=== PATIENT | female | born 1990 ===

== ENCOUNTER 2020-01-21 16:55 | Inpatient (IN) | payer OTHER ==
[2020-01-21] MEDS ORDERED: Butorphanol 1 MG/ML SDV IVPUSH PRN (18:28)
[2020-01-21] MEDS ORDERED: Carboprost Tromethamine 250 MCG/1 ML Amp IM PRN (18:28)
[2020-01-21] MEDS ORDERED: Sodium Chloride 0.9% 2.5 ML Syringe FLUSH PRN (18:28)
[2020-01-21] MEDS ORDERED: Lidocaine 1% 50 ML MDV INJECT PRN (18:28)
[2020-01-21] MEDS ORDERED: Tranexamic Acid 1,000 MG in Sodium Chloride 0.9% 100 ML IV PRN (18:28)
[2020-01-21] MEDS ORDERED: Water For Irrigation,Sterile 1,000 ML Container IRR PRN (18:28)
[2020-01-21] MEDS ORDERED: Nalbuphine 10 MG/1 ML Vial IVPUSH PRN (18:28)
[2020-01-21] MEDS ORDERED: Methylergonovine 0.2 MG/1 ML Amp IM PRN (18:28)
[2020-01-21] MEDS ORDERED: Sodium Chloride 0.9% 10 ML SDV IV PRN (18:28)
[2020-01-21] MEDS ORDERED: Misoprostol 200 MCG Tab PO PRN (18:28)
[2020-01-21] MEDS ORDERED: Sodium Chloride 0.9% 10 ML Syringe FLUSH PRN (18:28)
[2020-01-21] MEDS ORDERED: Oxytocin/0.9 % Sodium Chloride 30 UNIT/500 ML BAG IV SCH (18:30)
[2020-01-21] MEDS ORDERED: fentaNYL 100 MCG/2 ML SDV ONE (19:57)
[2020-01-21] MEDS ORDERED: Ropivacaine HCl/PF 100 ML ONE (19:58)
[2020-01-21] MEDS ORDERED: Ondansetron 4 MG/2 ML SDV IVPUSH PRN (20:26)
--- NOTE | 2020-01-21 20:49 | PCM.PREANE ---
Preanesthetic Assessment - Procedure Proposed Procedure: Continuous labor epidural for active labor/ IUP - Anesthesia/Transfusion/Family Hx Anesthesia History: No Prior Anesthesia Family History of Anesthesia Reaction: No Transfusion History: No Prior Transfusion(s) Additional History: Pt denies surgical history, including dental work with anesthesia or local anesthetic - Review of Systems General: No Symptoms Pulmonary: No Symptoms Cardiovascular: No Symptoms Gastrointestinal: No Symptoms Neurological: No Symptoms Other: Reports: None - Physical Assessment NPO Status Date: 01/21/20 NPO Status Time: 20:45 (Clear liquids) Height: 1.7 m Weight: 78.925 kg ASA Class: 2 Mental Status: Alert & Oriented x3 Airway Class: Mallampati = 2 Dentition: Reports: Normal Dentition Thyro-Mental Finger Breadths: 4 ROM/Head Extension: Full Lungs: Normal Respiratory Effort - Lab Values: Laboratory Last Values WBC 18.27 K/uL (4.0-11.0) H 01/21/20 18:47 RBC 4.02 M/uL (4.30-5.90) L 01/21/20 18:47 Hgb 11.0 g/dL (12.0-16.0) L 01/21/20 18:47 Hct 34.2 % (36.0-46.0) L 01/21/20 18:47 MCV 85.1 fL (80.0-98.0) 01/21/20 18:47 MCH 27.4 pg (27.0-32.0) 01/21/20 18:47 MCHC 32.2 g/dL (31.0-37.0) 01/21/20 18:47 RDW Std Deviation 47.9 fl (28.0-62.0) 01/21/20 18:47 RDW Coeff of Jean 15 % (11.0-15.0) 01/21/20 18:47 Plt Count 285 K/uL (150-400) 01/21/20 18:47 MPV 11.20 fL (7.40-12.00) 01/21/20 18:47 Nucleated RBC % 0.0 /100WBC 01/21/20 18:47 Nucleated RBCs # 0 K/uL 01/21/20 18:47 COVID-19 (AISHA) NEGATIVE (NEGATIVE) 01/21/20 17:45 Blood Type O POSITIVE 01/21/20 18:47 Antibody Screen NEGATIVE 01/21/20 18:47 - Allergies Allergies/Adverse Reactions: Allergies Allergy/AdvReac Type Severity Reaction Status Date / Time No Known Allergies Allergy Verified 01/21/20 03:58 - Anesthesia Plan Free Text/Narrative:: CARL - Acknowledgements Anesthesia Type Planned: Epidural Pt an Appropriate Candidate for the Planned Anesthesia: Yes Alternatives and Risks of Anesthesia Discussed w Pt/Guardian: Yes Pt/Guardian Understands and Agrees with Anesthesia Plan: Yes Additional Comments: Pt assessed prior to procedure. Documented retroactively. Risks, benefits, alternatives, procedure, and anesthesia coverage discussed with patient and s/o at 2002. All questions answered and concerns addressed to patient's satisfaction. PreAnesthesia Questionnaire HEENT History: Reports: None Cardiovascular History: Reports: None Respiratory History: Reports: None Gastrointestinal History: Reports: None Genitourinary History: Reports: None DENTAL COORDINATOR History: Reports: Musculoskeletal History: Reports: None Neurological History: Reports: None Psychiatric History: Reports: Anxiety, Depression Endocrine/Metabolic History: Reports: None Hematologic History: Reports: None Immunologic History: Reports: None Oncologic (Cancer) History: Reports: None Dermatologic History: Reports: Other (See Below) Other Dermatologic History: acne - Infectious Disease History Infectious Disease History: Reports: Chicken Pox - Past Surgical History HEENT Surgical History: Reports: None GI Surgical History: Reports: None Female Surgical History: Reports: None Musculoskeletal Surgical History: Reports: None - SUBSTANCE USE Smoking Status *Q: Never Smoker Second Hand Smoke Exposure: No Recreational Drug Use History: No - HOME MEDS Home Medications: Home Meds Sertraline [Zoloft] 50 mg PO DAILY 01/21/20 [History] - CURRENT (IN HOUSE) MEDS Current Meds: Current Medications Butorphanol Tartrate (Stadol) 1 mg IVPUSH Q1H PRN PRN Reason: Pain Carboprost Tromethamine (Hemabate Ds) 250 mcg IM ASDIRECTED PRN PRN Reason: Post Hemorrhage Lactated Ringer's (Ringers, Lactated) 1,000 mls @ 150 mls/hr IV ASDIRECTED JULIEN Oxytocin/Sodium Chloride (Oxytocin 30 Unit/500 Ml-Ns) 30 unit in 500 mls @ 500 mls/hr IV TITRATE JULIEN Tranexamic Acid 1,000 mg/ (Sodium Chloride) 110 mls @ 660 mls/hr IV ONETIME PRN PRN Reason: Bleeding Lidocaine HCl (Xylocaine 1%) 50 ml INJECT ONETIME PRN PRN Reason: Laceration repair Methylergonovine Maleate (Methergine) 0.2 mg IM ASDIRECTED PRN PRN Reason: Post Hemorrhage Misoprostol (Cytotec) 200 mcg PO ONETIME PRN PRN Reason: Post Hemorrhage Nalbuphine HCl (Nubain) 10 mg IVPUSH Q1H PRN PRN Reason: Pain (severe 7-10) Ondansetron HCl (Zofran) 4 mg IVPUSH Q6H PRN PRN Reason: Nausea/Vomiting Sodium Chloride (Saline Flush) 10 ml FLUSH ASDIRECTED PRN PRN Reason: Keep Vein Open Sodium Chloride (Saline Flush) 2.5 ml FLUSH ASDIRECTED PRN PRN Reason: Keep Vein Open Sodium Chloride (Normal Saline) 10 ml IV ASDIRECTED PRN PRN Reason: IV Use Sterile Water (Sterile Water For Irrigation) 1,000 ml IRR ASDIRECTED PRN PRN Reason: delivery Discontinued Medications Fentanyl (Sublimaze) Confirm Administered Dose 100 mcg .ROUTE .STK-MED ONE Stop: 01/21/20 19:58 Ropivacaine (Naropin 0.2%) Confirm Administered Dose 100 mls @ as directed .ROUTE .STK-MED ONE Stop: 01/21/20 19:59
[2020-01-21] MEDS: Lactated Ringers 1,000 ML IV SCH (23:10)
[2020-01-22] MEDS ORDERED: Ropivacaine HCl/PF 100 ML ONE (04:28)
[2020-01-22] MEDS ORDERED: fentaNYL 100 MCG/2 ML SDV ONE (04:28)
[2020-01-22] MEDS: Lactated Ringers 1,000 ML IV SCH (04:41)
--- NOTE | 2020-01-22 04:41 | PCM.SN.2 ---
- Free Text/Narrative Note: 01/22/20 @ 0425- patient's epidural bag complete. Replaced with same (ropivicaine 0.2% with 2 mcg/ml Fentanyl). No rate change (remained at 6ml/hr with 4ml Q10 min ENDOSCOPY TECH[employer]ICAN option with 30ml/hr lockout). Patient reports she is comfortable, feeling only "some pressure." Actively pushing, and effectively per RN. level T8. VS have been stable.
--- NOTE | 2020-01-22 06:11 | PCM.DEL ---
<Jose J Brand - Last Filed: 01/22/20 06:04> L & D Note - General Info Date of Service: 01/22/20 - Delivery Note Labor: Spontaneous Delivery Outcome: Livebirth Delivery Method: Spontaneous Vaginal Delivery-Single Delivery Mode: Spontaneous Presentation: Left Occiput Anterior (MACEY) Nuchal Cord: None Anesthesia Type: Epidural Anesthetic: Lidocaine (Xylocaine) 0.5% Plain Local Anesthetic Volume: 3cc Amniotic Fluid Description: Clear Episiotomy Type: None Laceration: 2nd Degree Suture type: Vicryl Suture size: 3-0 Placenta: Intact, Spontaneous Cord: 3 Vessels Estimated Blood Loss: 500 Resuscitation Needed: No : Suctioned, Stimulated, Warmed Score 1 min: 8 Score 5 min: 9 Delivery Comments (Free Text/Narrative):: Liveborn male infant weighing 7lb6oz, apgars 8 and 9. - Patient Data Weight - Most Recent: 78.925 kg I&O - Last 24 Hours: Intake & Output 01/21/20 01/21/20 01/22/20 14:59 22:59 06:59 Intake Total 1999 Balance 1999 Lab Results Last 24 Hours: Laboratory Results - last 24 hr 01/21/20 01/21/20 01/21/20 Range/Units 17:45 18:47 18:47 WBC 18.27 H (4.0-11.0) K/uL RBC 4.02 L (4.30-5.90) M/uL Hgb 11.0 L (12.0-16.0) g/dL Hct 34.2 L (36.0-46.0) % MCV 85.1 (80.0-98.0) fL MCH 27.4 (27.0-32.0) pg MCHC 32.2 (31.0-37.0) g/dL RDW Std Deviation 47.9 (28.0-62.0) fl RDW Coeff of Jean 15 (11.0-15.0) % Plt Count 285 (150-400) K/uL MPV 11.20 (7.40-12.00) fL Nucleated RBC % 0.0 /100WBC Nucleated RBCs # 0 K/uL COVID-19 (AISHA) NEGATIVE (NEGATIVE) Blood Type O POSITIVE Antibody Screen NEGATIVE Med Orders - Current: Current Medications Butorphanol Tartrate (Stadol) 1 mg IVPUSH Q1H PRN PRN Reason: Pain Carboprost Tromethamine (Hemabate Ds) 250 mcg IM ASDIRECTED PRN PRN Reason: Post Hemorrhage Lactated Ringer's (Ringers, Lactated) 1,000 mls @ 150 mls/hr IV ASDIRECTED [facility] Last Admin: 01/22/20 04:41 Dose: 999 mls/hr Documented by: Oxytocin/Sodium Chloride (Oxytocin 30 Unit/500 Ml-Ns) 30 unit in 500 mls @ 500 mls/hr IV TITRATE [facility] Tranexamic Acid 1,000 mg/ (Sodium Chloride) 110 mls @ 660 mls/hr IV ONETIME PRN PRN Reason: Bleeding Lidocaine HCl (Xylocaine 1%) 50 ml INJECT ONETIME PRN PRN Reason: Laceration repair Last Admin: 01/22/20 05:34 Dose: 50 ml Documented by: Methylergonovine Maleate (Methergine) 0.2 mg IM ASDIRECTED PRN PRN Reason: Post Hemorrhage Last Admin: 01/22/20 05:24 Dose: 0.2 mg Documented by: Misoprostol (Cytotec) 200 mcg PO ONETIME PRN PRN Reason: Post Hemorrhage Nalbuphine HCl (Nubain) 10 mg IVPUSH Q1H PRN PRN Reason: Pain (severe 7-10) Ondansetron HCl (Zofran) 4 mg IVPUSH Q6H PRN PRN Reason: Nausea/Vomiting Sodium Chloride (Saline Flush) 10 ml FLUSH ASDIRECTED PRN PRN Reason: Keep Vein Open Sodium Chloride (Saline Flush) 2.5 ml FLUSH ASDIRECTED PRN PRN Reason: Keep Vein Open Sodium Chloride (Normal Saline) 10 ml IV ASDIRECTED PRN PRN Reason: IV Use Sterile Water (Sterile Water For Irrigation) 1,000 ml IRR ASDIRECTED PRN PRN Reason: delivery Last Admin: 01/22/20 04:40 Dose: 1,000 ml Documented by: Discontinued Medications Fentanyl (Sublimaze) Confirm Administered Dose 100 mcg .ROUTE .STK-MED ONE Stop: 01/21/20 19:58 Fentanyl (Sublimaze) Confirm Administered Dose 100 mcg .ROUTE .STK-MED ONE Stop: 01/22/20 04:29 Ropivacaine (Naropin 0.2%) Confirm Administered Dose 100 mls @ as directed .ROUTE .STK-MED ONE Stop: 01/21/20 19:59 Ropivacaine (Naropin 0.2%) Confirm Administered Dose 100 mls @ as directed .ROUTE .STK-MED ONE Stop: 01/22/20 04:29 - Problem List & Annotations (1) (normal spontaneous vaginal delivery) SNOMED Code(s): 49068225, 977149750 Code(s): O80 - ENCOUNTER FOR FULL-TERM UNCOMPLICATED DELIVERY Status: Acute Current Visit: Yes - Problem List Review Problem List Initiated/Reviewed/Updated: Yes - Assessment Assessment:: 29yo s/p complicated by large 2nd-degree laceration. - Plan Plan:: Perineal care Monitor lochia Encourage Routine care <Naomie Conley - Last Filed: 01/22/20 06:29> L & D Note - Delivery Note Laceration: Vaginal Delivery Comments (Free Text/Narrative):: Live male delivered at 458am , 8/9 weight 3350g - General Info Date of Service: 01/22/20 - Patient Data I&O - Last 24 Hours: Intake & Output 01/21/20 01/21/20 01/22/20 14:59 22:59 06:59 Intake Total 1999 Balance 1999 Lab Results Last 24 Hours: Laboratory Results - last 24 hr 01/21/20 01/21/20 01/21/20 Range/Units 17:45 18:47 18:47 WBC 18.27 H (4.0-11.0) K/uL RBC 4.02 L (4.30-5.90) M/uL Hgb 11.0 L (12.0-16.0) g/dL Hct 34.2 L (36.0-46.0) % MCV 85.1 (80.0-98.0) fL MCH 27.4 (27.0-32.0) pg MCHC 32.2 (31.0-37.0) g/dL RDW Std Deviation 47.9 (28.0-62.0) fl RDW Coeff of Jean 15 (11.0-15.0) % Plt Count 285 (150-400) K/uL MPV 11.20 (7.40-12.00) fL Nucleated RBC % 0.0 /100WBC Nucleated RBCs # 0 K/uL COVID-19 (AISHA) NEGATIVE (NEGATIVE) Blood Type O POSITIVE Antibody Screen NEGATIVE Med Orders - Current: Current Medications Butorphanol Tartrate (Stadol) 1 mg IVPUSH Q1H PRN PRN Reason: Pain Carboprost Tromethamine (Hemabate Ds) 250 mcg IM ASDIRECTED PRN PRN Reason: Post Hemorrhage Lactated Ringer's (Ringers, Lactated) 1,000 mls @ 150 mls/hr IV ASDIRECTED JULIEN Last Admin: 01/22/20 04:41 Dose: 999 mls/hr Documented by: Oxytocin/Sodium Chloride (Oxytocin 30 Unit/500 Ml-Ns) 30 unit in 500 mls @ 500 mls/hr IV TITRATE JULIEN Tranexamic Acid 1,000 mg/ (Sodium Chloride) 110 mls @ 660 mls/hr IV ONETIME PRN PRN Reason: Bleeding Lidocaine HCl (Xylocaine 1%) 50 ml INJECT ONETIME PRN PRN Reason: Laceration repair Last Admin: 01/22/20 05:34 Dose: 50 ml Documented by: Methylergonovine Maleate (Methergine) 0.2 mg IM ASDIRECTED PRN PRN Reason: Post Hemorrhage Last Admin: 01/22/20 05:24 Dose: 0.2 mg Documented by: Misoprostol (Cytotec) 200 mcg PO ONETIME PRN PRN Reason: Post Hemorrhage Nalbuphine HCl (Nubain) 10 mg IVPUSH Q1H PRN PRN Reason: Pain (severe 7-10) Ondansetron HCl (Zofran) 4 mg IVPUSH Q6H PRN PRN Reason: Nausea/Vomiting Sodium Chloride (Saline Flush) 10 ml FLUSH ASDIRECTED PRN PRN Reason: Keep Vein Open Sodium Chloride (Saline Flush) 2.5 ml FLUSH ASDIRECTED PRN PRN Reason: Keep Vein Open Sodium Chloride (Normal Saline) 10 ml IV ASDIRECTED PRN PRN Reason: IV Use Sterile Water (Sterile Water For Irrigation) 1,000 ml IRR ASDIRECTED PRN PRN Reason: delivery Last Admin: 01/22/20 04:40 Dose: 1,000 ml Documented by: Discontinued Medications Fentanyl (Sublimaze) Confirm Administered Dose 100 mcg .ROUTE .STK-MED ONE Stop: 01/21/20 19:58 Fentanyl (Sublimaze) Confirm Administered Dose 100 mcg .ROUTE .STK-MED ONE Stop: 01/22/20 04:29 Ropivacaine (Naropin 0.2%) Confirm Administered Dose 100 mls @ as directed .ROUTE .STK-MED ONE Stop: 01/21/20 19:59 Ropivacaine (Naropin 0.2%) Confirm Administered Dose 100 mls @ as directed .ROUTE .STK-MED ONE Stop: 01/22/20 04:29 - Problem List & Annotations (1) (normal spontaneous vaginal delivery) SNOMED Code(s): 89378868, [id number] Code(s): O80 - ENCOUNTER FOR FULL-TERM UNCOMPLICATED DELIVERY Status: Acute Current Visit: Yes - My Orders Last 24 Hours: My Active Orders 01/21/20 18:28 Patient Status [ADT] Routine Heart Tones [RC] CONTINUOUS Non Stress Test [RC] PER UNIT ROUTINE May Shower [RC] ASDIRECTED Notify Provider [RC] PRN Up ad Humera [RC] ASDIRECTED Vaginal Exam [RC] PRN Vital Signs [RC] PER UNIT ROUTINE Butorphanol [Stadol] 1 mg IVPUSH Q1H PRN Carboprost Tromethamine [Hemabate DS] 250 mcg IM ASDIRECTED PRN Lidocaine 1% [Xylocaine 1%] 50 ml INJECT ONETIME PRN Methylergonovine [Methergine] 0.2 mg IM ASDIRECTED PRN Nalbuphine [Nubain] 10 mg IVPUSH Q1H PRN Sodium Chloride 0.9% [Normal Saline] 10 ml IV ASDIRECTED PRN Sodium Chloride 0.9% [Saline Flush] 10 ml FLUSH ASDIRECTED PRN Sodium Chloride 0.9% [Saline Flush] 2.5 ml FLUSH ASDIRECTED PRN Tranexamic Acid [Cyklokapron] 1,000 mg Sodium Chloride 0.9% [Normal Saline] 100 ml IV ONETIME Water For Irrigation,Sterile [Sterile Water for Irrigation] 1,000 ml IRR ASDIRECTED PRN miSOPROStoL [Cytotec] 200 mcg PO ONETIME PRN Scalp Electrode [WOMSER] Per Unit Routine Peripheral IV Insertion Adult [OM.PC] Routine Resuscitation Status Routine 01/21/20 18:30 Lactated Ringers [Ringers, Lactated] 1,000 ml IV ASDIRECTED Oxytocin/0.9 % Sodium Chloride [Oxytocin 30 Unit/500 ML-NS] 30 unit in 500 ml IV TITRATE 01/21/20 18:47 RPR (SYPHILIS SERO) W/ RFLX [REF] Routine - Assessment Assessment:: Second degree laceration , right vaginal wall laceration
[2020-01-22] MEDS ORDERED: Lanolin 100% Cream 7 GM Tube TOP PRN (06:40)
[2020-01-22] MEDS ORDERED: Acetaminophen 500 MG Tab PO PRN ×2 (06:40)
[2020-01-22] MEDS ORDERED: Ibuprofen 400 MG Tab PO PRN (06:40)
[2020-01-22] MEDS ORDERED: Bisacodyl 10 MG Supp RECTAL PRN (06:40)
[2020-01-22] MEDS ORDERED: Witch Hazel Medicated Pads 40/Jar TOP PRN (06:40)
[2020-01-22] MEDS ORDERED: oxyCODONE 5 MG Tab PO PRN (06:40)
[2020-01-22] MEDS ORDERED: Docusate Sodium 100 MG Cap PO PRN (06:40)
[2020-01-22] MEDS ORDERED: Benzocaine/Menthol 20%-0.5% Spray 78 GM Cannister TOP PRN (06:40)
--- NOTE | 2020-01-22 11:28 | OR ---
SURGEON: LOGAN CONLEY DATE OF PROCEDURE: 01/22/2020 PRIMARY SURGEON: Dr. Logan Conley. PROCEDURES: 1. Normal spontaneous vaginal delivery. 2. Repair of a second-degree vaginal laceration. 3. Repair of a right vaginal laceration. ESTIMATED BLOOD LOSS: 500. INTRAVENOUS FLUIDS: Pitocin running. NOTES AND FINDINGS: A live male delivered at 4:58 a.m. scores are 8 and 9. Weight is 3350 g. BRIEF HISTORY ABOUT THE PATIENT: She is a 29-year-old G1, P0, at 40 weeks 6 days, came in early labor, she was about 3 cm dilated, and she was AROM'd. Clear fluid was noted. She had normal labor progress. Then, she became fully dilated. The patient being fully dilated, she was encouraged to push. PROCEDURE IN DETAIL: With good pushing effort, she delivered the head. Subsequently, by the anterior and posterior shoulders, the body of the was delivered. The was placed on the maternal abdomen. Delayed cord clamping was observed. Then, the placenta was delivered via controlled cord traction. The uterus was massaged. Slightly increased lochia was noted. Methergine was given, and cord blood gases were obtained. Perineum was inspected and noted to have a second-degree laceration. Rectal exam was done and noted that there was no involvement of the anal sprinter. The laceration was repaired from the apex with continuous interlocking stitches , incorporating all layers of the perineal body within the incision. The perineal skin was closed with subcutaneous stitch. This was done with 3-0 Monocryl.Then, the right vaginal laceration was closed with 3-0 Vicryl. Bimanual massage confirmed firm uterus. The cervix was noted to be intact. Minimal vaginal bleeding was noted The patient tolerated the procedure well and was left in the Labor and Delivery room in stable condition. GRAHAM / OSCAR /[id number] MTDJoann
[2020-01-22] MEDS: Ibuprofen 800 MG Tab PO PRN ×2 (12:24→18:38)
--- NOTE | 2020-01-22 12:28 | PCM48HPAN ---
Post Anesthesia Note - EVALUATION WITHIN 48HRS OF ANESTHETIC Vital Signs in Normal Range: Yes Patient Participated in Evaluation: Yes Respiratory Function Stable: Yes Airway Patent: Yes Cardiovascular Function Stable: Yes Hydration Status Stable: Yes Pain Control Satisfactory: Yes (Reports 3/10 pain, which she considers adequate control. Appears calm.) Nausea and Vomiting Control Satisfactory: Yes (Denies N/V) Mental Status Recovered: Yes Vital Signs: Last Vital Signs Temp 37.0 C 01/22/20 06:10 Pulse 110 H 01/22/20 06:10 Resp 18 01/22/20 06:10 BP 97/64 01/22/20 06:10 Pulse Ox 94 L 01/22/20 06:10 - COMMENTS/OBSERVATIONS Free Text/Narrative:: Patient observed ambulating well. Reports full return of strength and sensation to BLE. Denies headache.
--- NOTE | 2020-01-23 08:14 | PCM.PNPP ---
<Jose J Brand - Last Filed: 01/23/20 08:11> - General Info Date of Service: 01/23/20 Subjective Update: Pt doing well today. Pain controlled. Bleeding is minimal. Ambulating well and tolerating oral intake. Has voided urine. going well. Functional Status: Reports: Pain Controlled - Review of Systems General: Reports: No Symptoms HEENT: Reports: No Symptoms Pulmonary: Reports: No Symptoms Cardiovascular: Reports: No Symptoms Gastrointestinal: Reports: No Symptoms Genitourinary: Reports: No Symptoms Musculoskeletal: Reports: No Symptoms Skin: Reports: No Symptoms Neurological: Reports: No Symptoms Psychiatric: Reports: No Symptoms - General Info Date of Service: 01/23/20 - Patient Data Vital Signs - Most Recent: Last Vital Signs Temp 97.8 F 01/23/20 05:00 Pulse 75 01/23/20 05:00 Resp 16 01/23/20 05:00 BP 114/72 01/23/20 05:00 Pulse Ox 99 01/23/20 05:00 Weight - Most Recent: 174 lb Lab Results - Last 24 Hours: Laboratory Results - last 24 hr 01/23/20 Range/Units 05:23 Hgb 8.5 L (12.0-16.0) g/dL Hct 26.5 L (36.0-46.0) % Med Orders - Current: Current Medications Acetaminophen (Tylenol Extra Strength) 500 mg PO Q4H PRN PRN Reason: Pain Acetaminophen (Tylenol Extra Strength) 1,000 mg PO Q4H PRN PRN Reason: Pain Benzocaine/Menthol (Dermoplast Pain Relief 20%-0.5% [place]) 0 gm TOP ASDIRECTED PRN PRN Reason: Perineal Comfort Measure Last Admin: 01/22/20 07:54 Dose: 1 canister Documented by: Bisacodyl (Dulcolax) 10 mg RECTAL ONETIME PRN PRN Reason: Constipation Carboprost Tromethamine (Hemabate Ds) 250 mcg IM ASDIRECTED PRN PRN Reason: Post Hemorrhage Docusate Sodium (Colace) 100 mg PO BID PRN PRN Reason: Constipation Emollient Ointment (Lansinoh Hpa) 0 gm TOP ASDIRECTED PRN PRN Reason: Sore Nipples Lactated Ringer's (Ringers, Lactated) 1,000 mls @ 150 mls/hr IV ASDIRECTED JULIEN Last Admin: 01/22/20 04:41 Dose: 999 mls/hr Documented by: Oxytocin/Sodium Chloride (Oxytocin 30 Unit/500 Ml-Ns) 30 unit in 500 mls @ 500 mls/hr IV TITRATE [facility] Tranexamic Acid 1,000 mg/ (Sodium Chloride) 110 mls @ 660 mls/hr IV ONETIME PRN PRN Reason: Bleeding Ibuprofen (Motrin) 400 mg PO Q4H PRN PRN Reason: Pain Ibuprofen (Motrin) 800 mg PO Q6H PRN PRN Reason: Pain Last Admin: 01/22/20 18:38 Dose: 800 mg Documented by: Lidocaine HCl (Xylocaine 1%) 50 ml INJECT ONETIME PRN PRN Reason: Laceration repair Last Admin: 01/22/20 05:34 Dose: 50 ml Documented by: Methylergonovine Maleate (Methergine) 0.2 mg IM ASDIRECTED PRN PRN Reason: Post Hemorrhage Last Admin: 01/22/20 05:24 Dose: 0.2 mg Documented by: Misoprostol (Cytotec) 200 mcg PO ONETIME PRN PRN Reason: Post Hemorrhage Nalbuphine HCl (Nubain) 10 mg IVPUSH Q1H PRN PRN Reason: Pain (severe 7-10) Ondansetron HCl (Zofran) 4 mg IVPUSH Q6H PRN PRN Reason: Nausea/Vomiting Oxycodone HCl (Oxycodone) 5 mg PO Q2H PRN PRN Reason: Pain Sodium Chloride (Saline Flush) 10 ml FLUSH ASDIRECTED PRN PRN Reason: Keep Vein Open Sodium Chloride (Saline Flush) 2.5 ml FLUSH ASDIRECTED PRN PRN Reason: Keep Vein Open Sodium Chloride (Normal Saline) 10 ml IV ASDIRECTED PRN PRN Reason: IV Use Sterile Water (Sterile Water For Irrigation) 1,000 ml IRR ASDIRECTED PRN PRN Reason: delivery Last Admin: 01/22/20 04:40 Dose: 1,000 ml Documented by: Jatin Pan (Emily) 1 pad TOP ASDIRECTED PRN PRN Reason: comfort care Last Admin: 01/22/20 07:54 Dose: 1 tub Documented by: Discontinued Medications Butorphanol Tartrate (Stadol) 1 mg IVPUSH Q1H PRN PRN Reason: Pain Fentanyl (Sublimaze) Confirm Administered Dose 100 mcg .ROUTE .STK-MED ONE Stop: 01/21/20 19:58 Fentanyl (Sublimaze) Confirm Administered Dose 100 mcg .ROUTE .STK-MED ONE Stop: 01/22/20 04:29 Ropivacaine (Naropin 0.2%) Confirm Administered Dose 100 mls @ as directed .ROUTE .STK-MED ONE Stop: 01/21/20 19:59 Ropivacaine (Naropin 0.2%) Confirm Administered Dose 100 mls @ as directed .ROUTE .STK-MED ONE Stop: 01/22/20 04:29 - Interaction Support Person: - Recovery Exam Fundal Tone: Firm Fundal Level: 1 Fingerbreadths Below Umbilicus Fundal Placement: Midline Lochia Amount: Scant Lochia Color: Rubra/Red Perineum Description: Edematous Episiotomy/Laceration: Approximated Bladder Status: Voiding - Exam General: Alert, Oriented, No Acute Distress HEENT: Pupils Equal, EOMI Neck: Supple, No JVD Lungs: Clear to Auscultation, Normal Respiratory Effort. No: Crackles, Rales, Rhonchi, Wheezing Cardiovascular: Regular Rate, Regular Rhythm, No Murmurs. No: Gallops, Rubs GI/Abdominal Exam: Normal Bowel Sounds, Soft, Non-Tender, No Distention Extremities: Normal Inspection, Non-Tender, No Pedal Edema Skin: Warm, Dry, Intact Neurological: No New Focal Deficit, Normal Speech, Normal Tone Psy/Mental Status: Alert, Normal Affect, Normal Mood - Problem List & Annotations (1) (normal spontaneous vaginal delivery) SNOMED Code(s): 85729010, 844717932 Code(s): O80 - ENCOUNTER FOR FULL-TERM UNCOMPLICATED DELIVERY Status: Acute Current Visit: Yes - Problem List Review Problem List Initiated/Reviewed/Updated: Yes - Assessment Assessment:: 29yo s/p with Second degree laceration , right vaginal wall laceration. PPD#1 - Plan Plan:: Perineal care Monitor lochia Encourage Routine care Discharge today <Dawit Yu - Last Filed: 01/23/20 08:54> - Patient Data Vital Signs - Most Recent: Last Vital Signs Temp 36.6 C 01/23/20 08:11 Pulse 84 01/23/20 08:11 Resp 16 01/23/20 08:11 BP 111/73 01/23/20 08:11 Pulse Ox 97 01/23/20 08:11 Lab Results - Last 24 Hours: Laboratory Results - last 24 hr 01/23/20 Range/Units 05:23 Hgb 8.5 L (12.0-16.0) g/dL Hct 26.5 L (36.0-46.0) % Med Orders - Current: Current Medications Acetaminophen (Tylenol Extra Strength) 500 mg PO Q4H PRN PRN Reason: Pain Acetaminophen (Tylenol Extra Strength) 1,000 mg PO Q4H PRN PRN Reason: Pain Benzocaine/Menthol (Dermoplast Pain Relief 20%-0.5% [place]) 0 gm TOP ASDIRECTED PRN PRN Reason: Perineal Comfort Measure Last Admin: 01/22/20 07:54 Dose: 1 canister Documented by: Bisacodyl (Dulcolax) 10 mg RECTAL ONETIME PRN PRN Reason: Constipation Carboprost Tromethamine (Hemabate Ds) 250 mcg IM ASDIRECTED PRN PRN Reason: Post Hemorrhage Docusate Sodium (Colace) 100 mg PO BID PRN PRN Reason: Constipation Emollient Ointment (Lansinoh Hpa) 0 gm TOP ASDIRECTED PRN PRN Reason: Sore Nipples Lactated Ringer's (Ringers, Lactated) 1,000 mls @ 150 mls/hr IV ASDIRECTED JULIEN Last Admin: 01/22/20 04:41 Dose: 999 mls/hr Documented by: Oxytocin/Sodium Chloride (Oxytocin 30 Unit/500 Ml-Ns) 30 unit in 500 mls @ 500 mls/hr IV TITRATE JULIEN Tranexamic Acid 1,000 mg/ (Sodium Chloride) 110 mls @ 660 mls/hr IV ONETIME PRN PRN Reason: Bleeding Ibuprofen (Motrin) 400 mg PO Q4H PRN PRN Reason: Pain Ibuprofen (Motrin) 800 mg PO Q6H PRN PRN Reason: Pain Last Admin: 01/22/20 18:38 Dose: 800 mg Documented by: Lidocaine HCl (Xylocaine 1%) 50 ml INJECT ONETIME PRN PRN Reason: Laceration repair Last Admin: 01/22/20 05:34 Dose: 50 ml Documented by: Methylergonovine Maleate (Methergine) 0.2 mg IM ASDIRECTED PRN PRN Reason: Post Hemorrhage Last Admin: 01/22/20 05:24 Dose: 0.2 mg Documented by: Misoprostol (Cytotec) 200 mcg PO ONETIME PRN PRN Reason: Post Hemorrhage Nalbuphine HCl (Nubain) 10 mg IVPUSH Q1H PRN PRN Reason: Pain (severe 7-10) Ondansetron HCl (Zofran) 4 mg IVPUSH Q6H PRN PRN Reason: Nausea/Vomiting Oxycodone HCl (Oxycodone) 5 mg PO Q2H PRN PRN Reason: Pain Sodium Chloride (Saline Flush) 10 ml FLUSH ASDIRECTED PRN PRN Reason: Keep Vein Open Sodium Chloride (Saline Flush) 2.5 ml FLUSH ASDIRECTED PRN PRN Reason: Keep Vein Open Sodium Chloride (Normal Saline) 10 ml IV ASDIRECTED PRN PRN Reason: IV Use Sterile Water (Sterile Water For Irrigation) 1,000 ml IRR ASDIRECTED PRN PRN Reason: delivery Last Admin: 01/22/20 04:40 Dose: 1,000 ml Documented by: Jatin Lopezguadalupe) 1 pad TOP ASDIRECTED PRN PRN Reason: comfort care Last Admin: 01/22/20 07:54 Dose: 1 tub Documented by: Discontinued Medications Butorphanol Tartrate (Stadol) 1 mg IVPUSH Q1H PRN PRN Reason: Pain Fentanyl (Sublimaze) Confirm Administered Dose 100 mcg .ROUTE .STK-MED ONE Stop: 01/21/20 19:58 Fentanyl (Sublimaze) Confirm Administered Dose 100 mcg .ROUTE .STK-MED ONE Stop: 01/22/20 04:29 Ropivacaine (Naropin 0.2%) Confirm Administered Dose 100 mls @ as directed .ROUTE .STK-MED ONE Stop: 01/21/20 19:59 Ropivacaine (Naropin 0.2%) Confirm Administered Dose 100 mls @ as directed .ROUTE .STK-MED ONE Stop: 01/22/20 04:29 - Plan Plan:: Doing well. Hgb 8.5 today, bleeding light, no s/s of anemia. Sent iron supplements BID. Stable for discharge home, reviewed care instructions.
[2020-01-23] MEDS: Ibuprofen 800 MG Tab PO PRN (09:15)
== END 2020-01-23 13:10 | disposition home or self-care (01) | DRG 806 ==
LOC: MW.OBCHECK 16:55 → MW.OB 16:55 → MW.OBCHECK 18:28 → OBSVTOIN 01-22 04:58 → MW.OB 01-22 10:40
PROVIDERS: ADMIT Obstetrics & Gynecology; ATTEND Obstetrics & Gynecology
PROC: 10E0XZZ Delivery of Products of Conception, External Approach (ICD-10-PCS; principal; 2020-01-22)
PROC: 0KQM0ZZ Repair Perineum Muscle, Open Approach (ICD-10-PCS; 2020-01-22)
PROC: 10907ZC Drainage of Amniotic Fluid, Therapeutic from Products of Conception, Via Natural or Artificial Opening (ICD-10-PCS; 2020-01-22)
PROC: 0UQGXZZ Repair Vagina, External Approach (ICD-10-PCS; 2020-01-22)
PROC: 3E0R3BZ Introduction of Anesthetic Agent into Spinal Canal, Percutaneous Approach (ICD-10-PCS; 2020-01-22)
PROC: 00HU33Z Insertion of Infusion Device into Spinal Canal, Percutaneous Approach (ICD-10-PCS; 2020-01-22)
DX: O48.0 Post-term pregnancy (principal); O71.4 Obstetric high vaginal laceration alone; Z37.0 Single live birth; Z3A.40 40 weeks gestation of pregnancy; Z11.59 Encounter for screening for other viral diseases
CPT/HCPCS: 36415; 51702; 59025; 59409; 82803; 85014; 85018; 85027; 86592; 86593; 86780; 86850; 86900; 86901; 88307; A9270-GY; J2001; J2210; J7120; U0002

== ENCOUNTER 2022-09-06 21:48 | Inpatient (IN) | payer BC ==
[2022-09-06] MEDS ORDERED: Sodium Chloride 0.9% 2.5 ML Syringe FLUSH PRN (22:13)
[2022-09-06] MEDS ORDERED: Methylergonovine 0.2 MG/1 ML Amp IM PRN (22:13)
[2022-09-06] MEDS ORDERED: Water For Irrigation,Sterile 1,000 ML Container IRR PRN (22:13)
[2022-09-06] MEDS ORDERED: Tranexamic Acid 1,000 MG in Sodium Chloride 0.9% 100 ML IV PRN (22:13)
[2022-09-06] MEDS ORDERED: Butorphanol 1 MG/ML SDV IVPUSH PRN (22:13)
[2022-09-06] MEDS ORDERED: Sodium Chloride 0.9% 10 ML Syringe FLUSH PRN (22:13)
[2022-09-06] MEDS ORDERED: Misoprostol 200 MCG Tab PO PRN (22:13)
[2022-09-06] MEDS ORDERED: Carboprost Tromethamine 250 MCG/1 ML Amp IM PRN (22:13)
[2022-09-06] MEDS ORDERED: Lidocaine 1% 50 ML MDV INJECT PRN (22:13)
[2022-09-06] MEDS ORDERED: Sodium Chloride 0.9% 20 ML SDV IV PRN (22:13)
[2022-09-06] MEDS ORDERED: Lactated Ringers 1,000 ML IV SCH (22:15)
[2022-09-06] MEDS ORDERED: Oxytocin/0.9 % Sodium Chloride 30 UNIT/500 ML BAG IV SCH (22:15)
[2022-09-06] MEDS ORDERED: Bupivacaine 0.5% 10 ML SDV ONE (22:24)
[2022-09-06] MEDS ORDERED: Ropivacaine/PF 400 MG/200 ML PCA ONE (22:25)
[2022-09-06] MEDS ORDERED: ePHEDrine 50 MG/ML SDV IVPUSH PRN ×2 (22:48)
[2022-09-06] MEDS ORDERED: Phenylephrine HCl In 0.9% NaCl 1 MG/10 ML Vial IVPUSH PRN (22:48)
[2022-09-06] MEDS ORDERED: Ropivacaine HCl/PF 400 MG in Premix Bag 1 BAG EPIDUR SCH (23:00)
[2022-09-06] MEDS ORDERED: Witch Hazel Medicated Pads 40/Jar TOP PRN (23:20)
[2022-09-06] MEDS ORDERED: Bisacodyl 10 MG Supp RECTAL PRN (23:20)
[2022-09-06] MEDS ORDERED: Ibuprofen 400 MG Tab PO PRN (23:20)
[2022-09-06] MEDS ORDERED: Acetaminophen 500 MG Tab PO PRN ×2 (23:20)
[2022-09-06] MEDS ORDERED: Docusate Sodium 100 MG Cap PO PRN (23:20)
[2022-09-06] MEDS ORDERED: Lanolin 100% Cream 7 GM Tube TOP PRN (23:20)
[2022-09-06] MEDS ORDERED: Benzocaine/Menthol 20%-0.5% Spray 78 GM Cannister TOP PRN (23:20)
[2022-09-06] MEDS ORDERED: oxyCODONE 5 MG Tab PO PRN (23:20)
[2022-09-07] MEDS: Phenylephrine HCl In 0.9% NaCl 1 MG/10 ML Vial IVPUSH SCH ×2 (04:39→04:40)
[2022-09-07] MEDS: Ibuprofen 800 MG Tab PO PRN ×2 (16:26→22:33)
[2022-09-08] MEDS ORDERED: Sertraline 50 MG Tab PO ONE (08:00)
[2022-09-08] MEDS: Ibuprofen 800 MG Tab PO PRN (08:07)
== END 2022-09-08 12:50 | disposition home or self-care (01) | DRG 560 ==
LOC: MW.OB 21:48 → MW.OBCHECK 21:48 → MW.OB 22:14 → OBSVTOIN 22:40 → MW.OB 09-07 02:55
PROVIDERS: ADMIT Obstetrics & Gynecology; ATTEND Obstetrics & Gynecology
PROC: 10E0XZZ Delivery of Products of Conception, External Approach (ICD-10-PCS; principal; 2022-09-06)
PROC: 0KQM0ZZ Repair Perineum Muscle, Open Approach (ICD-10-PCS; 2022-09-06)
PROC: 3E0R3BZ Introduction of Anesthetic Agent into Spinal Canal, Percutaneous Approach (ICD-10-PCS; 2022-09-06)
PROC: 00HU33Z Insertion of Infusion Device into Spinal Canal, Percutaneous Approach (ICD-10-PCS; 2022-09-06)
DX: O62.3 Precipitate labor (principal); Z3A.39 39 weeks gestation of pregnancy; Z37.0 Single live birth; O99.344 Other mental disorders complicating childbirth; O77.0 Labor and delivery complicated by meconium in amniotic fluid; O70.1 Second degree perineal laceration during delivery; F41.9 Anxiety disorder, unspecified; F32.A Depression, unspecified; Z20.822 Contact with and (suspected) exposure to COVID-19
CPT/HCPCS: 36415; 59025; 59409; 82803; 85014; 85018; 85027; 86592; 86850; 86900; 86901; A9270-GY; J2001; J2590; J3490; U0002